=== PATIENT | male | born 1945 | race Caucasian/White ===

== ENCOUNTER 2020-05-31 01:32 | Outpatient (CLI) | payer BC, SELFPAY ==
[2020-05-31 18:04] LABS: SARS-CoV-2 RNA PCR Negative
== END 2020-05-31 01:33 | disposition home or self-care (01) ==
LOC: ANHCOVIDDT 01:32
PROVIDERS: PCP Pediatrics; Visit Provider Plastic Surgery
DX: Z01.812 Encounter for preprocedural laboratory examination (principal); Z20.828 Contact with and (suspected) exposure to other viral communicable diseases
CPT/HCPCS: 87635; C9803; U0003

== ENCOUNTER 2020-06-04 01:55 | Day surgery (SDC) | payer BC, SELFPAY ==
[2020-05-26 14:56] VITALS: BMI 26.5
[2020-06-04] VITALS (12 sets, daily range): BP systolic 116–146; BP diastolic 56–68; PULSE 54–68; RESP 10–18; TEMP 36.5; O2SAT 97–100
--- NOTE | 2020-06-04 07:33 | WPDHPUPDATE1 ---
History and Physical Update Update Date/Time: 06/04/20 07:33 History and Physical has been reviewed, including an updated exam of the patient. There are NO changes in the patient's condition. Risks, benefits, and alternatives have been discussed and questions answered. Patient agrees to proceed with procedure.
[2020-06-04] MEDS: LIDO 1%/EPINEPHRINE 1:100,000 20 ML VIAL 5 ML INFILTRATE (07:53)
[2020-06-04] MEDS: BACITRACIN OINTMENT 15 GM TUBE 1 APPLIC TOPICAL (07:54)
--- NOTE | 2020-06-04 08:13 | SUR.OPER ---
Frozen section tissue sent with Guera Rust and received in pathology by Lizzy
--- NOTE | 2020-06-04 09:35 | PM.OP ---
Procedure Note - Brief Procedure Note - Brief Date of procedure: 06/04/20 Pre-op diagnosis: SCC Right Nostril Post-op diagnosis: same Procedure performed: 1.0 cm excision of SCC right nostril with FS and FTSG 1.0 sq cm. Anesthesia: local Surgeon: Kong Parisi MD Estimated blood loss (mL): 2 Drains: No Packing: No Pathology: yes Complications: No immediate complications Condition: stable Disposition: same day
--- NOTE | 2020-06-04 09:36 | SUR.PHASEII ---
0930- pt awake, alert. getting dressed. incision to right side of nose and to right neck behind ear are clean , dry, with ointment.
--- NOTE | 2020-06-04 09:38 | PM.PROC ---
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 It was marked. The patient was sent to the operating room. He was placed supine on the operating table. A time-out was held and the biopsy site of the right upper nasal ala was confirmed. The Face was prepped and draped in usual fashion including the right neck. The site was carefully marked after wiping away Betadine on the immediate area. The site was infiltrated with 1% lidocaine with epinephrine. The designated site was incised with a #15 blade and a thin layer of skin carefully excised tangentially. The most lateral aspect was marked with a suture for 12 o'clock. Specimen was sent to pathology for frozen section. The pathologist reports the presence of a small area of squamous or perhaps basal cell carcinoma with all margins free. The donor site was marked and infiltrated with Lidocaine with epinepherine on the right upper neck. The skin graft was incised and carefully elevated. The donor site was undermined slightly and the wound closed with intradermal 4-0 Monocryl sutures and glue. The graft was carefully defatted on the back table. It was tailored and inset with 6 0 nylon suture. A couple of quilting stitches were placed in the middle. The graft was dressed with bacitracin ointment and no bandage. The patient was discharged with instructions in wound care and follow-up. He has a prescription for cephalexin 500 mg t.i.d. for 5 days. A prescription for tramadol 50 mg 8.. Surgeon: Kong Parisi MD
== END 2020-06-04 09:45 | disposition home or self-care (01) ==
PROVIDERS: PCP Pediatrics; Visit Provider Plastic Surgery
PROC: (CPT 11641; principal; 2020-06-04 07:30)
DX: C30.0 Malignant neoplasm of nasal cavity (principal)
CPT/HCPCS: 11641; 15260; 88305; 88331; A9270